=== PATIENT | male | born 1985 | race Caucasian/White ===

== ENCOUNTER 2021-08-05 20:52 | Emergency (ER) | payer OTHER ==
[~2021-08-05] VITALS: Ht 177.8 cm; Wt 79.2 kg
[2021-08-05] MEDS ORDERED: KETOROLAC 60MG/2ML VIAL IM ONE (22:00)
[2021-08-05] MEDS ORDERED: ACETAMINOPHEN 325MG TABLET PO ONE (22:00)
[2021-08-05 22:44] VITALS: BP 127/86
[2021-08-05] MEDS ORDERED: IBUP-2028 MT (23:57)
[2021-08-05] MEDS ORDERED: TOPUD PO (23:57)
== END 2021-08-06 00:10 | disposition home or self-care (01) ==
LOC: ER 20:52
DX: S82.091A Other fracture of right patella, initial encounter for closed fracture (principal); V49.59XA Passenger injured in collision with other motor vehicles in traffic accident, initial encounter; Y93.89 Activity, other specified; Y92.89 Other specified places as the place of occurrence of the external cause; Y99.8 Other external cause status
CPT/HCPCS: 40650; 73110; 73562; 96372; 99284; J1885; L1830; Z7610